=== PATIENT | female | born 1960 | race Caucasian/White ===

== ENCOUNTER → 2016-04-14 | Outpatient (CLI) | payer OTHER ==
[~2016-04-14] MED LIST: GADOBUTROL 10 ML VIAL IVP ONE
--- NOTE | 2016-04-14 11:13 | MR ---
MRI of Bilateral Breasts Clinical Indications: Strong family history of breast malignancy, with sister currently dying from b reast cancer. Cystic breast changes and tenderness. Abnormal right axillary examination. High risk sc reening. Technique: Precontrast sagittal fat-saturated T2-weighted and Vibrant images of both breasts are obt ained. Subsequently, during intravenous administration of 5.5 mL Gadavist, multiphasic sagittally ac quired Vibrant MR images through both breasts are obtained. Data is sent to the independent [employer] workstation for additional analysis including 3D reconstruction, computer-aided detection (CAD), and color-coded phase contrast enhancement evaluation. Findings: Left breast: Benign-appearing fibrocystic type enhancement is present throughout the left breast pare nchyma, without evidence of masslike or ductal enhancement. Right breast: Again demonstrated are small foci of fibrocystic-type enhancement throughout the right breast parenchyma, without evidence of masslike or ductal enhancement. Lymph nodes: No features of axillary or internal mammary lymphadenopathy identified. Impression: Normal bilateral breast MRI examination, without features of malignancy. BI-RADS 1.
== END ==
LOC: FIMAGING 07:06
PROVIDERS: ATTEND Internal Medicine
DX: Z12.31 Encounter for screening mammogram for malignant neoplasm of breast (principal); N60.11 Diffuse cystic mastopathy of right breast; N60.12 Diffuse cystic mastopathy of left breast; Z80.3 Family history of malignant neoplasm of breast
CPT/HCPCS: 0159T; A9585; C8908

== ENCOUNTER → 2016-09-01 | Outpatient (CLI) | payer OTHER | LOC: FIMAGING 11:16 | PROVIDERS: ATTEND Internal Medicine | DX: Z12.31 Encounter for screening mammogram for malignant neoplasm of breast (principal); Z80.3 Family history of malignant neoplasm of breast | CPT/HCPCS: G0202 ==

== ENCOUNTER → 2017-08-13 | Outpatient (CLI) | payer OTHER | LOC: FIMAGING 12:07 | PROVIDERS: ATTEND Internal Medicine | DX: Z12.31 Encounter for screening mammogram for malignant neoplasm of breast (principal); Z80.3 Family history of malignant neoplasm of breast ==